=== PATIENT | female | born 1995 | race Caucasian/White ===

== ENCOUNTER 2020-03-11 12:23 | Outpatient (CLI) | payer SELFPAY | END 2020-03-11 12:24 | disposition home or self-care (01) | LOC: COV 12:23 | PROVIDERS: ATTEND Family Medicine | DX: R05 Cough (principal); R06.02 Shortness of breath; M79.10 Myalgia, unspecified site; R53.83 Other fatigue; R68.83 Chills (without fever); R07.0 Pain in throat; R09.81 Nasal congestion; J34.89 Other specified disorders of nose and nasal sinuses; Z20.828 Contact with and (suspected) exposure to other viral communicable diseases ==

== ENCOUNTER 2020-04-27 15:00 | Outpatient (CLI) | payer BC, OTHER ==
[2020-04-28 18:33] LABS: CANDIDA GROUP DNA NEGATIVE (NEGATIVE); CANDIDA KRUSEI DNA NEGATIVE (NEGATIVE); TRICHOMONAS VAGINALIS DNA NEGATIVE (NEGATIVE)
[2020-04-28 19:56] LABS: TRICHOMONAS VAGINALIS DNA NEGATIVE (NEGATIVE)
== END 2020-04-27 23:59 | disposition home or self-care (01) ==
LOC: LAB.R 15:00
PROVIDERS: ATTEND Obstetrics & Gynecology
DX: R10.2 Pelvic and perineal pain (principal); Z11.3 Encounter for screening for infections with a predominantly sexual mode of transmission
CPT/HCPCS: 87491; 87591; 87661; 87801

== ENCOUNTER 2020-05-08 19:23 | Outpatient (CLI) | payer BC ==
--- NOTE | 2020-05-08 21:33 | CT Report ---
PROCEDURE: CHEST WO INDICATIONS: PULMONARY NODULE TECHNIQUE: Noncontrast 5 mm thick sections acquired from the pulmonary apices to the posterior costophrenic angl es. 7 mm thick coronal and sagittal MIP reformats were then acquired. For radiation dose reduction, the following was used: automated exposure control, adjustment of mA and/or kV according to patient size. COMPARISON: None FINDINGS: Image quality: Excellent. Lungs and pleura: No acute air space opacities. 1.0 cm nodule noted in the right lung base which has mildly irregular margins (series 4, image 212) No pleural effusions or pneumothorax. Central and p eripheral airways are patent and normal in caliber. Mediastinum: Heart size is normal. No pericardial effusion. No mediastinal adenopathy by size crit eria. Thoracic aorta and central pulmonary arteries are normal in size. Esophagus is normal in joe waqas. No hiatal hernia. Bones and chest wall: No suspicious bony lesions. No vertebral body compression fractures. Spine de generative disc disease and facet arthropathy are noted. No axillary or supraclavicular adenopathy by size criteria. The thyroid is normal in size. Abdomen: Visualized upper abdominal solid organs and bowel loops appear normal in the absence of con trast. IMPRESSION: 1. Solitary 1.0 cm solid nodule with slightly irregular margins in the right lower lobe. Neoplastic p rocess cannot be excluded.. Recommend follow-up CT scan in [address] scan for additional kalin luation based on criteria outlined below. 2. No lymphadenopathy based on size criteria. Fleischner Society criteria for lung nodule followup. Solid nodules Solitary nodule size: <6 mm * low risk patients: no follow-up needed * high risk patients: optional CT at 12 months Solitary nodule size: 6-8 mm * low risk patients: follow-up at 6-12 months, then consider further follow-up at 18-24 months * high risk patients: initial follow-up CT at 6-12 months and then at 18-24 months if no change Solitary nodule size: >8 mm * either low or high risk patients * consider follow-up CT at 3 months, and/or CT-PET, and/or biopsy Multiple nodules size: <6 mm * low risk patients: no routine follow-up * high risk patients: optional CT at 12 months Multiple nodules size: 6-8 mm * low risk patients: follow-up at 3-6 months, then consider further follow-up at 18-24 months * high risk patients: follow-up at 3-6 months, then at 18-24 months if no change Multiple nodules size: >8 mm * low risk patients: follow-up at 3-6 months, then consider further follow-up at 18-24 months * high risk patients: follow-up at 3-6 months, then at 18-24 months if no change. Recommendations do not apply to lung cancer screening, patient's with immunosuppression or patients w ith known primary cancer. Reviewed by: Lacy Gould MD, PhD on 05/08/2020 9:31 PM PST Approved by: Lacy Gould MD, PhD on 05/08/2020 9:31 PM PST Station ID: [id number]
--- NOTE | 2020-05-09 11:27 | Ultrasound Report ---
PROCEDURE: Pelvic w/Transvaginal INDICATIONS: DEEP DYSPAREUNIA, ADNEXAL MASS TECHNIQUE: Real-time scanning was performed of the pelvic organs, with image documentation. Additional endovagi nal scanning was necessary due to incomplete visualization of the adnexal and endometrial structures by transabdominal scanning. COMPARISON: No prior ultrasounds are available for review at the time of this dictation. FINDINGS: No pathologic free abdominal or pelvic fluid. Uterus: Uterus is normal in size at 7.3 x 3.6 x 4.9 cm. The endometrium measures 4 mm in combined t hickness. Ovaries: The right ovary measures 3.3 x 2.6 x 3.6 cm. The left ovary measures 4 x 2.1 x 3.7 cm. Norm al-appearing, cystic follicles can be seen involving each ovary. No adnexal masses are seen on either side. IMPRESSION: Pelvic ultrasound within normal limits, without an imaging explanation found for the patient's presen ting history. Reviewed by: Jt Bui MD on 05/09/2020 10:26 AM [facility] Approved by: Jt Bui MD on 05/09/2020 10:26 AM [facility] Station ID: [id number]
== END 2020-05-08 19:24 | disposition home or self-care (01) ==
LOC: DI 19:23
PROVIDERS: ATTEND Obstetrics & Gynecology
DX: R91.1 Solitary pulmonary nodule (principal); N94.12 Deep dyspareunia; R19.09 Other intra-abdominal and pelvic swelling, mass and lump

== ENCOUNTER 2020-05-22 14:36 | Outpatient (CLI) | payer BC ==
[2020-05-22 18:33] LABS: BASOPHILS # (AUTO) 0.1 10^3/uL (0.0-0.1); BASOPHILS % (AUTO) 0.6 %; EOSINOPHILS # (AUTO) 0.2 10^3/uL (0.0-0.7); HCT - HEMATOCRIT 40.4 % (37.0-47.0); HGB - HEMOGLOBIN 13.7 g/dL (12.0-16.0); LYMPHOCYTES # (AUTO) 1.8 10^3/uL (1.5-3.5); LYMPHOCYTES % (AUTO) 22.6 %; MEAN CORPUSCULAR HEMOGLOBIN 31.1 pg (27.0-31.0); MEAN CORPUSCULAR HGB CONC 33.9 g/dL (32.0-36.0); MEAN CORPUSCULAR VOLUME 91.8 fL (81.0-99.0); MEAN PLATELET VOLUME 9.9 fL (7.9-10.8); MONOCYTES # (AUTO) 0.4 10^3/uL (0.0-1.0); MONOCYTES % (AUTO) 5.2 %; NEUTROPHILS # (AUTO) 5.5 10^3/uL (1.5-6.6); NEUTROPHILS % (AUTO) 69.3 %; PLT - PLATELET COUNT 321 10^3/uL (130-450); RED CELL DISTRIBUTION WIDTH 11.9 % (12.0-15.0); WHITE BLOOD COUNT 7.9 x10^3/uL (4.8-10.8)
[2020-05-22 19:16] LABS: ALBUMIN 4.4 g/dL (3.2-5.5); ALBUMIN/GLOBULIN RATIO 1.6 (1.0-2.2); BILIRUBIN,TOTAL 0.5 mg/dL (0.2-1.0); CALCIUM 9.1 mg/dL (8.5-10.3); CREATININE 0.7 mg/dL (0.4-1.0); POTASSIUM 3.4 mmol/L (3.5-5.0); TOTAL PROTEIN 7.2 g/dL (6.7-8.2)
[2020-05-22 19:22] LABS: THYROID STIMULATING HORMONE 1.15 uIU/mL (0.34-5.60)
[2020-05-25 07:37] LABS: NIL 0.74 IU/mL; TB1-NIL 0.26 IU/mL; TB2-NIL 0.32 IU/mL
== END 2020-05-22 23:59 | disposition home or self-care (01) ==
LOC: LAB.WCP 14:36
PROVIDERS: ATTEND Registered Nurse
DX: R91.1 Solitary pulmonary nodule (principal); J45.998 Other asthma; F41.8 Other specified anxiety disorders
CPT/HCPCS: 36415; 80053; 84443; 85025; 86480

== ENCOUNTER 2020-05-26 16:06 | Emergency (ER) | payer OTHER, BC ==
[2020-05-26 16:31] LABS: HCT - HEMATOCRIT 41.6 % (37.0-47.0); HGB - HEMOGLOBIN 14.4 g/dL (12.0-16.0); MEAN CORPUSCULAR HEMOGLOBIN 31.2 pg (27.0-31.0); MEAN CORPUSCULAR HGB CONC 34.6 g/dL (32.0-36.0); MEAN CORPUSCULAR VOLUME 90.2 fL (81.0-99.0); MEAN PLATELET VOLUME 9.5 fL (7.9-10.8); RED BLOOD COUNT 4.61 10^6/uL (4.20-5.40); RED CELL DISTRIBUTION WIDTH 11.9 % (12.0-15.0); WHITE BLOOD COUNT 8.3 x10^3/uL (4.8-10.8)
[2020-05-26 16:48] LABS: ALBUMIN 4.8 g/dL (3.2-5.5); ALBUMIN/GLOBULIN RATIO 1.7 (1.0-2.2); BILIRUBIN,TOTAL 0.4 mg/dL (0.2-1.0); CALCIUM 9.4 mg/dL (8.5-10.3); CREATININE 0.6 mg/dL (0.4-1.0); POTASSIUM 3.5 mmol/L (3.5-5.0); TOTAL PROTEIN 7.7 g/dL (6.7-8.2)
--- NOTE | 2020-05-26 16:56 | ED Physician Documentation ---
History of Present Illness - Stated complaint Stated Complaint: NEEDLE STICK - Chief complaint Chief Complaint: Needlestick - Additonal information Additional information: Have been [id number] female presents the emergency department for evaluation after a needlestick injury. 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 She was disposing of used to inject lidocaine around a wound. She reports that when disposing of the Needle it broke through the And poked her on the distal right index finger radial side. Patient reports her tetanus status as up-to-date. She did receive the hepatitis B vaccinations. This is her first needlestick. Review of Systems Constitutional: reports: Reviewed and negative Ears: reports: Reviewed and negative Nose: reports: Reviewed and negative Throat: reports: Reviewed and negative Cardiac: reports: Reviewed and negative Respiratory: reports: Reviewed and negative GI: reports: Reviewed and negative : reports: Reviewed and negative Skin: reports: Other (needle stick injury distal right index finger) Musculoskeletal: reports: Reviewed and negative PD PAST MEDICAL HISTORY - Past Medical History Past Medical History: Yes Cardiovascular: None Respiratory: Asthma Neuro: None Endocrine/Autoimmune: None GI: None 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 : None HEENT: None Psych: None Musculoskeletal: None Derm: None - Past Surgical History Past Surgical History: No HEENT: Tonsil/Adenoidectomy - Present Medications Home Medications: Ambulatory Orders Medication Instructions Recorded Confirmed Bcp 05/26/20 Budesonide/Formoterol Fumarate 10.2 gm IH DAILY PRN 05/26/20 05/26/20 [Symbicort 160-4.5 Mcg Inhaler] hydrOXYzine HCL [Hydroxyzine HCl] 10 mg PO DAILY PRN 05/26/20 05/26/20 - Allergies Allergies/Adverse Reactions: Allergies Allergy/AdvReac Type Severity Reaction Status Date / Time Penicillins Allergy Hives Verified 05/26/20 16:12 - Social History Does the pt smoke?: No Smoking Status: Never smoker Does the pt drink ETOH?: Yes Does the pt have substance abuse?: No - Immunizations Immunizations are current?: Yes - POLST Patient has POLST: No PD ED PE EXPANDED - General General: Alert, Anxious - Cardiac Cardiac: Tachy, Radial strong equal, Pedal strong equal, Cap refill < 2 sec - Respiratory Respiratory: Clear to ausultation paolo. No: Distress, Labored - Derm Derm: Other (small needle stick poke distal right index finger) Results - Vitals Vitals: Vital Signs - 24 hr 05/26/20 16:08 Temperature 37 C Heart Rate 125 H Respiratory 16 Rate Blood Pressure 147/91 H O2 Saturation 100 Oxygen O2 Source Room air - Labs Labs: Laboratory Tests 05/26/20 05/26/20 16:25 16:25 WBC 8.3 RBC 4.61 Hgb 14.4 Hct 41.6 MCV 90.2 MCH 31.2 H MCHC 34.6 RDW 11.9 L Plt Count 313 MPV 9.5 Sodium 136 Potassium 3.5 Chloride 99 L Carbon Dioxide 26 Anion Gap 11.0 BUN 9 Creatinine 0.6 Estimated GFR (MDRD) 124 Glucose 104 H Calcium 9.4 Total Bilirubin 0.4 AST 13 ALT 14 Alkaline Phosphatase 38 L Total Protein 7.7 Albumin 4.8 Globulin 2.9 Albumin/Globulin Ratio 1.7 PD MEDICAL DECISION MAKING - ED course Complexity details: re-evaluated patient, considered differential, d/w patient ED course: 24-year-old female presents to the emergency department after a needlestick injury at her workplace this afternoon. She was poked in the needle in the finger by a needle used to inject lidocaine. Patient's tetanus status is up-to-date. She has reportedly received the hepatitis B series vaccines. This is considered a low risk needlestick injury. We discussed HIV PEP but patient declines at this time as it is a low risk injury. Baseline viral screening labs are obtained today and she is advised to obtain repeat labs at 6 weeks 12 weeks and again at 6 months. Appropriate L&I paperwork completed. Claim#[id number] Departure - Departure Disposition: 01 Home, Self Care Clinical Impression: Needle stick injury of finger of right hand Instructions: ED Body Fluid Exp HC Worker Comments: You were seen today after a needlestick injury. We have drawn screening labs to check your hepatitis HIV status. This is considered a low risk needle injury. You should have your viral labs repeated in 6 weeks, again in 12 weeks, and again in 6 months. This can be completed through any labor and industries provider, your primary care doctor or walk-in clinics. You are cleared to return to duty this afternoon or tomorrow. If over the next 3 to 6 weeks you develop fevers myalgias have cough cold or congestion please r eturn immediately to the ER.
[2020-05-26 17:12] VITALS: BP 137/86
[2020-05-27 12:26] LABS: HEPATITIS C ANTIBODY NON-REACTIVE (NON-REACTIVE)
[2020-05-27 12:29] LABS: HIV AG/AB 4TH GEN NON-REACTIVE (NON-REACTIVE)
== END 2020-05-26 17:12 | disposition home or self-care (01) ==
LOC: ED 16:06
DX: S61.230A Puncture wound without foreign body of right index finger without damage to nail, initial encounter (principal); Z77.21 Contact with and (suspected) exposure to potentially hazardous body fluids; W46.1XXA Contact with contaminated hypodermic needle, initial encounter; Y93.89 Activity, other specified; Y92.59 Other trade areas as the place of occurrence of the external cause; Y99.0 Civilian activity done for income or pay
CPT/HCPCS: 1040M; 36415; 80053; 85027; 86317; 86803; 87389; 99282; 99283

== ENCOUNTER 2020-06-14 13:31 | Emergency (ER) | payer BC ==
[2020-06-14] MEDS ORDERED: KETOROLAC 30 MG/ML VIAL IM STA (14:19)
--- NOTE | 2020-06-14 15:58 | Ultrasound Report ---
PROCEDURE: Duplex Ext Veins Left INDICATIONS: L medial distal thigh pain this am TECHNIQUE: Real-time imaging, as well as color and pulse Doppler interrogation, were performed of the lower extr emity deep veins from the inguinal ligament to the popliteal fossa. COMPARISON: None. FINDINGS: The deep veins are normally compressible, and free of intraluminal thrombus. Color and pu lse Doppler demonstrate normal phasic intraluminal flow. There is normal augmentation response to di stal compression maneuver. IMPRESSION: No findings of deep venous thrombosis are seen. Note: Concordant preliminary findings given by the dairy machine operator farmworker upon the completion of the examination to nurse Lopez at 3:45 PM on 06/06/2020. Reviewed by: Jt Bui MD on 06/14/2020 2:56 PM [facility] Approved by: Jt Biu MD on 06/14/2020 2:56 PM [facility] Station ID: [id number]
--- NOTE | 2020-06-14 16:08 | ED Physician Documentation ---
History of Present Illness - Stated complaint Stated Complaint: L LEG PX - Chief complaint Chief Complaint: Ext Problem - History obtained from History obtained from: Patient - Additonal information Additional information: 24-year-old woman, previously healthy presents with left medial thigh pain sudden onset upon waking at 4 AM. Pain is spasmodic, constant, localized to the left distal medial thigh nonradiating, moderate severity without associated features. Worse with weightbearing however she is able to ambulate. Denies redness, swelling, fever, pain with range of motion of the knee, history of blood clots, family history of clotting disorder, injury to the area. She is very physically active. Non-smoker. On the oral contraceptive pill. Review of Systems Constitutional: denies: Fever : denies: Dysuria Skin: denies: Rash, Lesions, Abrasion (s) Musculoskeletal: reports: Extremity pain. 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 - Past Surgical History Past Surgical History: No HEENT: Tonsil/Adenoidectomy - Present Medications Home Medications: Ambulatory Orders Medication Instructions Recorded Confirmed Budesonide/Formoterol Fumarate 10.2 gm IH DAILY PRN 05/26/20 06/14/20 [Symbicort 160-4.5 Mcg Inhaler] Ethinyl Estradiol/Drospirenone 1 tab PO DAILY 05/26/20 06/14/20 [Maura 28 Tablet] hydrOXYzine HCL [Hydroxyzine HCl] 10 mg PO DAILY PRN 05/26/20 06/14/20 - Allergies Allergies/Adverse Reactions: Allergies Allergy/AdvReac Type Severity Reaction Status Date / Time Penicillins Allergy Hives Verified 06/14/20 13:37 - Social History Does the pt smoke?: No Smoking Status: Never smoker Does the pt drink ETOH?: Yes Does the pt have substance abuse?: No - Immunizations Immunizations are current?: Yes - POLST Patient has POLST: No PD ED PE NORMAL - Vitals Vital signs reviewed: Yes - General General: Alert and oriented X 3, No acute distress, Well developed/nourished - HEENT HEENT: Atraumatic, PERRL, EOMI - Neck Neck: Supple, no meningeal sign - Female Female : Deferred - Rectal Rectal: Deferred - Back Back: No spinal TTP - Derm Derm: Normal color, Warm and dry - Extremities Extremities: No deformity, No tenderness to palpate, Other (discomfort to palpation of L distal medial thigh in a muscular distribution. Knee nontender with normal rom. ambulatory with a limp.) - Neuro Neuro: Alert and oriented X 3 - Psych Psych: Normal mood, Normal affect Results - Vitals Vitals: Vital Signs - 24 hr 06/14/20 13:35 Temperature 36.7 C Heart Rate 108 H Respiratory 18 Rate Blood Pressure 145/91 H O2 Saturation 100 Oxygen O2 Source Room air PD MEDICAL DECISION MAKING - ED course ED course: 24-year-old woman presents with left medial thigh pain and concerned that she has a DVT. Ultrasound negative for DVT. Patient is reassured and will practice conservative management at home. She will follow up with her primary doctor. If she does not have relief of her symptoms with rice therapy then she may have a follow-up ultrasound in 1 week. Low suspicion for DVT. Strict return precautions given. Departure - Departure Disposition: 01 Home, Self Care Clinical Impression: Pain in extremity, Muscle strain Condition: Good Instructions: ED GRICELDA Comments: You were seen in the emergency department for muscle strain. Please follow the RICE guidelines and return to the ED if you have any new or worsening symptoms or other concerns. Follow up with your primary doctor.
[2020-06-14 16:17] VITALS: BP 138/88
== END 2020-06-14 16:22 | disposition home or self-care (01) ==
LOC: ED 13:31
DX: S76.912A Strain of unspecified muscles, fascia and tendons at thigh level, left thigh, initial encounter (principal); X58.XXXA Exposure to other specified factors, initial encounter
CPT/HCPCS: 96372; 99284

== ENCOUNTER 2020-07-26 08:00 | Outpatient (CLI) | payer BC, OTHER ==
[2020-07-26 20:47] LABS: BACTERIAL VAGINOSIS DNA NEGATIVE (NEGATIVE); CANDIDA GLABRATA DNA NEGATIVE (NEGATIVE); CANDIDA GROUP DNA POSITIVE (NEGATIVE); CANDIDA KRUSEI DNA NEGATIVE (NEGATIVE); TRICHOMONAS VAGINALIS DNA NEGATIVE (NEGATIVE)
== END 2020-07-26 23:59 | disposition home or self-care (01) ==
LOC: LAB.S 08:00
PROVIDERS: ATTEND Physician Assistant
DX: B37.3 Candidiasis of vulva and vagina (principal)
CPT/HCPCS: 87661; 87801

== ENCOUNTER 2021-03-03 08:00 | Outpatient (CLI) | payer OTHER ==
[2021-03-03 19:54] LABS: BASOPHILS # (AUTO) 0.1 10^3/uL (0.0-0.1); BASOPHILS % (AUTO) 0.7 %; EOSINOPHILS # (AUTO) 0.1 10^3/uL (0.0-0.7); EOSINOPHILS % (AUTO) 0.8 %; HCT - HEMATOCRIT 39.4 % (37.0-47.0); HGB - HEMOGLOBIN 13.5 g/dL (12.0-16.0); LYMPHOCYTES # (AUTO) 1.9 10^3/uL (1.5-3.5); LYMPHOCYTES % (AUTO) 19.3 %; MEAN CORPUSCULAR HEMOGLOBIN 30.8 pg (27.0-31.0); MEAN CORPUSCULAR HGB CONC 34.3 g/dL (32.0-36.0); MEAN CORPUSCULAR VOLUME 89.7 fL (81.0-99.0); MEAN PLATELET VOLUME 9.9 fL (7.9-10.8); MONOCYTES # (AUTO) 0.7 10^3/uL (0.0-1.0); MONOCYTES % (AUTO) 7.4 %; NEUTROPHILS # (AUTO) 6.8 10^3/uL (1.5-6.6); NEUTROPHILS % (AUTO) 71.5 %; PLT - PLATELET COUNT 336 10^3/uL (130-450); RED BLOOD COUNT 4.39 10^6/uL (4.20-5.40); RED CELL DISTRIBUTION WIDTH 11.9 % (12.0-15.0); WHITE BLOOD COUNT 9.6 x10^3/uL (4.8-10.8)
[2021-03-03 20:06] LABS: ALBUMIN 4.7 g/dL (3.2-5.5); ALBUMIN/GLOBULIN RATIO 1.6 (1.0-2.2); BILIRUBIN,TOTAL 0.6 mg/dL (0.2-1.0); CALCIUM 9.2 mg/dL (8.5-10.3); CREATININE 0.9 mg/dL (0.4-1.0); POTASSIUM 3.8 mmol/L (3.5-5.0); TOTAL PROTEIN 7.6 g/dL (6.7-8.2)
== END 2021-03-03 23:59 | disposition home or self-care (01) ==
LOC: LAB.S 08:00
PROVIDERS: ATTEND Emergency Medicine
DX: R10.9 Unspecified abdominal pain (principal)
CPT/HCPCS: 36415; 80053; 83690; 85025

== ENCOUNTER 2021-11-12 18:49 | Outpatient (CLI) | payer OTHER ==
--- NOTE | 2021-11-13 13:51 | Ultrasound Report ---
PROCEDURE: OB First Trimester w/TV INDICATIONS: SUPERVISION OF OUTSIDE/PRIOR DATING DATA: Last menstrual period (LMP): 09/30/2021. LMP-based estimated date of delivery (GO): 07/07/2022. First dating scan (date and location): 11/12/2021. Estimated date of delivery (GO) from first dating scan: 07/06/2022. The below data below was generated using the ultrasound GO of 07/06/2022 TECHNIQUE: Real-time scanning was performed of the fetus and maternal pelvic organs, with image documentation. Endovaginal scanning was also performed to better visualize the fetus and maternal ovaries. COMPARISON: None FINDINGS: Embryo: Single living intrauterine gestation with estimated sonographic gestational age of approxima tely 6 weeks and 2 days based off crown-rump length measurement of 0.49 cm. There is a small perigestational hemorrhage measuring 2.2 x 1.6 x 2.1 cm. Heart rate: 112 beats for minute Measurement variability in dating: +/- 4 weeks by LMP, +/- 7 days by mean sac diameter (use before 6 weeks gestation if crown-rump length not able to be measured), +/- 5 days by crown-rump length (6-12 weeks gestation). Maternal organs: Ovaries demonstrate presence of a right corpus luteal cyst.. Trace pelvic free flui d near the cul-de-sac. IMPRESSION: Single living intrauterine gestation with estimated sonographic gestational age of approximately 6 we eks and 2 days based off crown-rump length measurement. Estimated date of delivery is approximately . Small perigestational hemorrhage measuring 2.2 cm in maximum dimension. Recommend continued clinical surveillance and follow-up routine second trimester anatomic phillipe john survey. Reviewed by: Joao Srinivasan MD on 11/13/2021 1:50 PM PDT Approved by: Joao Srinivasan MD on 11/13/2021 1:50 PM PDT Station ID: [id number]
== END 2021-11-12 18:50 | disposition home or self-care (01) ==
LOC: DI 18:49
PROVIDERS: ATTEND Nurse Practitioner Obstetrics & Gynecology
DX: Z36.9 Encounter for antenatal screening, unspecified (principal); O20.8 Other hemorrhage in early pregnancy; Z3A.01 Less than 8 weeks gestation of pregnancy

== ENCOUNTER 2021-12-06 09:26 | Outpatient (CLI) | payer OTHER | END 2021-12-06 09:27 | disposition home or self-care (01) | LOC: LAB 09:26 | PROVIDERS: ATTEND Nurse Practitioner Obstetrics & Gynecology | DX: Z13.9 Encounter for screening, unspecified (principal) | CPT/HCPCS: 36415; 81243; 81255; 81329; 81599 ==

== ENCOUNTER 2021-12-09 10:18 | Outpatient (CLI) | payer OTHER | END 2021-12-09 10:19 | disposition home or self-care (01) | LOC: LAB 10:18 | PROVIDERS: ATTEND Nurse Practitioner Obstetrics & Gynecology | DX: Z01.89 Encounter for other specified special examinations (principal) | CPT/HCPCS: 36415 ==

== ENCOUNTER 2022-02-17 14:11 | Outpatient (CLI) | payer OTHER ==
--- NOTE | 2022-02-17 19:47 | Ultrasound Report ---
PROCEDURE: OB Detailed Eval INDICATIONS: SUPERVISION OF OUTSIDE/PRIOR DATING DATA: Last menstrual period (LMP): 09/30/2021. LMP-based estimated date of delivery (GO): 07/07/2022. First dating scan (date and location): 11/12/2021. Estimated date of delivery (GO) from first dating scan: 07/06/2022. TECHNIQUE: Real-time scanning was performed of the fetus, with image documentation and biometric measurements. Endovaginal scanning: Not performed COMPARISON: 11/12/2021. FINDINGS: General: A single living intrauterine gestation is present. Presentation: Vertex Placenta: Placental position is anterior, without previa. Amniotic fluid index: 14.9 cm, normal for gestational age. heart rate: 148 beats per minute. Maternal cervical canal: 4.6 cm long; normal length is 2.5 cm or more. biometrics: Biparietal diameter: 4.6 cm, 20 weeks 0 days Head circumference: 17.5 cm, 20 weeks 0 days Abdominal circumference: 15.7 cm, 20 weeks 6 days Femur length: 3.6 cm, 21 weeks 2 days Composite gestational age from present scan: 20 weeks 3 days Estimated weight and percentile: 385 g, 85th percentile Measurement variability in biometric dating: +/- 10 days from 12-20 weeks gestation, +/- 2 weeks from 20-30 weeks gestation, +/- 3 weeks at 30 weeks gestation or later. Anatomic survey: Neuro: Ventricles are normal at less than 10 mm. Cisterna magna is normal at 3-11 mm. Cerebellum i s normal in size and morphology. Nuchal skin fold: Normal at less than 6 mm between 14 and 20 weeks gestational age. Face: Nose and lips, facial profile are normal. Spine: Suboptimally visualized Heart: 4-chambered heart is present, with normal ventricular outflow tracts. Diaphragm: Diaphragm is intact. Stomach: Left-sided stomach is present. Kidneys: No hydronephrosis. Normal is less than 5 mm in 2nd trimester, less than 7 mm in 3rd trimester. Cord: 3 vessel cord has orthotopic insertion. Bladder: Normal in size. Extremities: All 4 extremities are visualized. Hands are suboptimally visualized. IMPRESSION: 1. Single living intrauterine . 2. spine and hands are suboptimally visualized. Follow-up is recommended. 3. The remainder of the anatomy survey is within normal limits. Reviewed by: Drew Lozano MD on 02/17/2022 6:45 PM [facility] Approved by: Drew Lozano MD on 02/17/2022 6:45 PM [facility] Station ID: [id number]
== END 2022-02-17 14:12 | disposition home or self-care (01) ==
LOC: DI 14:11
PROVIDERS: ATTEND Nurse Practitioner Obstetrics & Gynecology
DX: Z34.00 Encounter for supervision of normal first pregnancy, unspecified trimester (principal); Z36.89 Encounter for other specified antenatal screening

== ENCOUNTER 2022-02-24 19:58 | Outpatient (CLI) | payer OTHER ==
--- NOTE | 2022-02-25 11:53 | Ultrasound Report ---
PROCEDURE: OB F/U or Repeat INDICATIONS: SUPERVISION OF NORMAL , COMPLETE FAS OUTSIDE/PRIOR DATING DATA: Last menstrual period (LMP): 09/30/2021. LMP-based estimated date of delivery (GO): 07/07/2022. First dating scan (date and location): 11/12/2021. Estimated date of delivery (GO) from first dating scan: The below data below was generated using the working GO of 07/06/2022 TECHNIQUE: Real-time scanning was performed of the fetus, with image documentation and biometric measurements. Endovaginal scanning: Not performed COMPARISON: OB ultrasound, 02/17/2022, 11/12/2021. FINDINGS: General: A single living intrauterine gestation is present. Presentation: Breech Placenta: Placental position is anterior, without previa. Amniotic fluid index: 15.0 cm; the deepest pocket 4.3 cm. heart rate: 143 beats per minute. Maternal cervical canal: 5.8 cm long; normal length is 2.5 cm or more. biometrics: Not performed Estimated gestational age from initial scan: 21 weeks 1 day. Measurement variability in biometric dating: +/- 10 days from 12-20 weeks gestation, +/- 2 weeks from 20-30 weeks gestation, +/- 3 weeks at 30 weeks gestation or more. Other: spine and hands were visualized and appear normal. IMPRESSION: 1. A single living IUP redemonstrated. 2. Normal spine and hands. Reviewed by: Denise Roemro MD on 02/25/2022 11:51 AM PST Approved by: Denise Romero MD on 02/25/2022 11:51 AM PST Station ID: [id number]
== END 2022-02-24 19:59 | disposition home or self-care (01) ==
LOC: DI 19:58
PROVIDERS: ATTEND Nurse Practitioner Obstetrics & Gynecology
DX: Z34.02 Encounter for supervision of normal first pregnancy, second trimester (principal); Z36.89 Encounter for other specified antenatal screening

== ENCOUNTER 2022-03-18 07:05 | Outpatient (CLI) | payer OTHER ==
--- NOTE | 2022-03-18 11:32 | Ultrasound Report ---
PROCEDURE: OB F/U or Repeat INDICATIONS: DISEASES OF RESPIRATORY TRACT COMPLICATING PREGNAN OUTSIDE/PRIOR DATING DATA: Last menstrual period (LMP): 09/30/2021. LMP-based estimated date of delivery (GO): 07/07/2022. First dating scan (date and location): 11/12/2021. Estimated date of delivery (GO) from first dating scan: 07/06/2022. The below data below was generated using the study generated GO of 07/06/2022 TECHNIQUE: Real-time scanning was performed of the fetus, with image documentation and biometric measurements. Endovaginal scanning: Not indicated COMPARISON: 02/24/2022, 02/17/2022, 11/12/2021 FINDINGS: General: A single living intrauterine gestation is present. Presentation: Vertex Placenta: Placental position is anterior, without previa. Amniotic fluid index: 15.2 cm, which is at 54.5% and is normal for gestational age. heart rate: 162 beats per minute. Maternal cervical canal: 3.8 cm long and is closed; normal length is 2.5 cm or more. biometrics: Biparietal diameter: 5.3 cm, 23 weeks, 6 days. Head circumference: 21.99 cm, 24 weeks, 0 day. Abdominal circumference: 19.97 cm, 24 weeks, 4 days. Femur length: 4.60 cm, 25 weeks, 2 days. Estimated gestational age from initial scan: 24 weeks, 2 days. Composite gestational age from present scan: 24 weeks, 3 days. Estimated weight and percentile: 731 g, 63% Measurement variability in biometric dating: +/- 10 days from 12-20 weeks gestation, +/- 2 weeks from 20-30 weeks gestation, +/- 3 weeks at 30 weeks gestation or more. Other: chest, stomach, bilateral kidneys, and urinary bladder are visualized and are within nor mal limits. Right corpus luteal cyst is noted measures 1.6 x 1.3 x 1.4 cm in size. IMPRESSION: 1. Single live intrauterine gestation with fetus in vertex presentation. heart rate is 162 bpm. Normal amount of amniotic fluid. Normal growth. Estimated weight is at 63%. 2. Right corpus luteal cyst as above. Reviewed by: Guy Bejarano MD on 03/18/2022 11:31 AM PST Approved by: Guy Bejarano MD on 03/18/2022 11:31 AM [facility] Station ID: [id number]
== END 2022-03-18 07:06 | disposition home or self-care (01) ==
LOC: DI 07:05
PROVIDERS: ATTEND Nurse Practitioner Obstetrics & Gynecology
DX: O99.512 Diseases of the respiratory system complicating pregnancy, second trimester (principal); J98.9 Respiratory disorder, unspecified; Z3A.24 24 weeks gestation of pregnancy; O34.82 Maternal care for other abnormalities of pelvic organs, second trimester; N83.11 Corpus luteum cyst of right ovary

== ENCOUNTER 2022-04-03 07:20 | Emergency (ER) | payer OTHER ==
[2022-04-03] MEDS ORDERED: DEXAMETHASONE 10 MG/ML VIAL PO STA (07:38)
[2022-04-03] MEDS ORDERED: CHERRY SYRUP 10 ML UDC PO ONE (07:38)
[2022-04-03] MEDS ORDERED: ALBUTEROL NEB 2.5 MG/3 ML INH STA (07:38)
--- NOTE | 2022-04-03 07:39 | ED Physician Documentation ---
PD HPI URI - Stated complaint Stated Complaint: SOA/COUGH - Chief complaint Chief Complaint: Resp - History obtained from History obtained from: Patient - Additional information Additional information: 26-year-old woman, G1, P0 at 26 weeks and 4 days had COVID a few months ago and did well with Decadron since she has mild intermittent asthma. Now sick again with nonproductive cough, wheezing and shortness of breath. No fevers, chills, nor myalgias. Her has recently been sick with a similar illness and tested negative for COVID. 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 : None HEENT: None Psych: None Musculoskeletal: None Derm: None - Past Surgical History Past Surgical History: No HEENT: Tonsil/Adenoidectomy - Present Medications Home Medications: Ambulatory Orders Medication Instructions Recorded Confirmed Budesonide/Formoterol Fumarate 10.2 gm IH DAILY PRN 05/26/20 06/14/20 [Symbicort 160-4.5 Mcg Inhaler] Ethinyl Estradiol/Drospirenone 1 tab PO DAILY 05/26/20 06/14/20 [Maura 28 Tablet] hydrOXYzine HCL [Hydroxyzine HCl] 10 mg PO DAILY PRN 05/26/20 06/14/20 dexAMETHasone [Decadron] 4 mg PO BIDWM #14 tablet 04/03/22 - Allergies Allergies/Adverse Reactions: Allergies Allergy/AdvReac Type Severity Reaction Status Date / Time Penicillins Allergy Hives Verified 04/03/22 07:26 - Social History Does the pt smoke?: No Smoking Status: Never smoker Does the pt drink ETOH?: Yes Does the pt have substance abuse?: No - Immunizations Immunizations are current?: Yes - POLST Patient has POLST: No PD ED PE NORMAL - Vitals Vital signs reviewed: Yes - General General: Alert and oriented X 3, No acute distress - Cardiac Cardiac: RRR, No murmur - Respiratory Respiratory: Other (Mildly tachypneic but speaking in full sentences, diffuse expiratory wheezes that are mild without inspiratory wheezes. Good air motion. No focal findings.) - Abdomen Abdomen: Non tender, Other (Gravid, bedside ultrasound showing live intrauterine with heart rate of 160.) - Extremities Extremities: No edema, No calf tenderness / cord - Neuro Neuro: Alert and oriented X 3, Normal speech Results - Vitals Vitals: Vital Signs - 24 hr 04/03/22 04/03/22 04/03/22 07:23 07:53 08:45 Temperature 36.7 C Heart Rate 98 79 84 Respiratory 20 19 20 Rate Blood Pressure 137/64 H 132/80 H O2 Saturation 97 95 Oxygen O2 Source Room air - Labs Labs: Laboratory Tests 04/03/22 07:40 Nasal Adenovirus (PCR) NOT DETECTED Nasal B. parapertussis DNA (PCR) NOT DETECTED Nasal Coronavir 229E PCR NOT DETECTED Nasal Coronavir HKU1 PCR NOT DETECTED Nasal Coronavir NL63 PCR NOT DETECTED Nasal Coronavir OC43 PCR NOT DETECTED Nasal Enterovir/Rhinovir PCR NOT DETECTED Nasal Influenza B PCR NOT DETECTED Nasal Influenza A PCR NOT DETECTED Nasal Parainfluen 1 PCR NOT DETECTED Nasal Parainfluen 2 PCR NOT DETECTED Nasal Parainfluen 3 PCR NOT DETECTED Nasal Parainfluen 4 PCR NOT DETECTED Nasal RSV (PCR) NOT DETECTED Nasal B.pertussis DNA PCR NOT DETECTED Nasal C.pneumoniae (PCR) NOT DETECTED [facility] Human Metapneumo PCR NOT DETECTED Nasal M.pneumoniae (PCR) NOT DETECTED Nasal SARS-CoV-2 (PCR) NOT DETECTED PD Medical Decision Making - ED course ED course: 26-year-old woman with history of asthma presents with an exacerbation associated with respiratory symptoms. Clinically no evidence of pneumonia. PE is considered since she is but there is no leg swelling, and her symptoms are consistent with viral URI/asthma. Given her underlying asthma will restart steroids as she has had good effect with those in the past. Departure - Departure Disposition: 01 Home, Self Care Clinical Impression: Asthma Qualifiers: Asthma severity: mild Asthma persistence: intermittent Asthma complication type: with acute exacerbation Qualified Code(s): J45.21 - Mild intermittent asthma with (acute) exacerbation Upper respiratory tract infection Qualifiers: URI type: unspecified viral URI Qualified Code(s): J06.9 - Acute upper respiratory infection, unspecified Condition: Good Record reviewed to determine appropriate education?: Yes Instructions: ED Reactive Airway Disease Prescriptions: dexAMETHasone [Decadron] 4 mg PO BIDWM #14 tablet Comments: As discussed, reasonable to restart Symbicort as your baseline and use your as needed inhaler. Follow-up with your primary care physician or pool hall inspector in a few days for recheck, return for new or worsening symptoms. You have a Covid test pending. This test also for a number of other viral respiratory pathogens..You can check results at [email or web address], click on the my [facility] tab and sign up for the patient portal. Discharge Date/Time: 04/03/22 08:47
--- OUTSIDE RECORDS SUMMARY | 2022-04-03 07:41 | EXTERNAL MEDICAL SUMMARY RPT | Continuity of Care Document ---
:1995 Author Organization [facility] Address [address] [place] [address] Phone Allergies and Intolerances date description facility type (no date) PENICILLINS [facility] (unknown) (no date) NO KNOWN ALLERGIES [facility] (unknown) Encounters No information. Functional Status No information. Immunizations No information. Medications No information. Problems date description facility 2022-03-05 14:51 Shortness of Breath [facility] 2022-03-05 14:51 Secondary polycythemia [facility] 2022-03-05 14:51 Moderate persistent asthma with (acute) exacerbation [facility] 2022-03-05 14:51 Other effects of high altitude, initial encounter [facility] 2022-03-05 14:51 22 weeks gestation of [facility] 2022-03-08 05:23 Cough [facility] 2022-03-08 05:23 Moderate persistent asthma with (acute) exacerbation [facility] 2022-03-08 05:23 COVID-19 [facility] 2022-03-08 19:27 Tingling [facility] 2022-03-08 19:27 Procedure and treatment not carried out due to patient [facility] leaving prior to being seen by health ca re provider Procedures No information. Results/Labs No information. Social History No information. Vital Signs No information.
[2022-04-03 08:46] LABS: B. PARAPERTUSSIS- RESP PCR PAN NOT DETECTED; B. PERTUSSIS- RESP PCR PANEL NOT DETECTED; C. PNEUMONIAE- RESP PCR PANEL NOT DETECTED; CORONAVIRUS 229E-RESP PCR NOT DETECTED; CORONAVIRUS HKU1-RESP PCR NOT DETECTED; CORONAVIRUS NL63-RESP PCR NOT DETECTED; CORONAVIRUS OC43-RESP PCR NOT DETECTED; HUMAN METAPNEUMOVIRUS NOT DETECTED; INFLUENZA A- RESP PCR PANEL NOT DETECTED; INFLUENZA B - RESP PCR PANEL NOT DETECTED; M. PNEUMONIAE- RESP PCR PANEL NOT DETECTED; PARAINFLUENZA VIRUS 1 NOT DETECTED; PARAINFLUENZA VIRUS 2 NOT DETECTED; PARAINFLUENZA VIRUS 3 NOT DETECTED; PARAINFLUENZA VIRUS 4 NOT DETECTED; RHINOVIRUS/ENTEROVIRUS NOT DETECTED; RSV- RESP PCR PANEL NOT DETECTED; SARS-CoV-2 -RESP PCR PANEL NOT DETECTED
[2022-04-03 08:47] VITALS: BP 132/80
== END 2022-04-03 08:47 | disposition home or self-care (01) ==
LOC: ED 07:20
DX: J06.9 Acute upper respiratory infection, unspecified (principal); J45.21 Mild intermittent asthma with (acute) exacerbation; Z20.822 Contact with and (suspected) exposure to COVID-19
CPT/HCPCS: 87633; 94640; 99283; 99284; A9270